=== PATIENT | female | born 1965 | race Caucasian/White ===

== ENCOUNTER 2022-02-08 15:16 | Inpatient (IN) | payer OTHER ==
--- OUTSIDE RECORDS SUMMARY | 2022-02-08 15:20 | XMS REPORT | Continuity of Care Document ---
:1965 Author Organization [facility] t Address [address] [place] [address] Care Team Providers Name Role Phone Sly BARNETT Primary Care Physician CHARITY DYSON Attending Clinician Unavailable Sly BARNETT Attending Clinician SLY Attending Clinician Unavailable Geo BARNETT Attending Clinician Darius DELGADO Attending Clinician Unavailable Darius DELGADO Admitting Clinician Unavailable Payers Payer Name Policy Type Policy Number Effective Date Expiration Date S [facility] [employer] O [id number] Problems Condition Condition Condition Status Onset Resolution Last Treating Co mments Source Name Details Category Date Date Treatment Clinician Date History of History of Disease Active 2019-09 [facility] repair of repair of 0-05 [facility] hiatal hiatal 00:00: of hernia hernia 00 Medicin e History of History of Disease Active 2019-09 [facility] repair of repair of 0-05 [facility] hiatal hiatal 00:00: of hernia hernia 00 Medicin e Essential Essential Disease Active 2019-09 [facility] hypertensi hypertensi 0-05 Co llege on on 00:00: of 00 Medicin e Heavy Heavy Disease Active 2019-09 [facility] alcohol alcohol 0-05 College use use 00:00: of 00 Medicin e 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 e drug Social History Social Habit Start Date Stop Date Quantity Comments Source Exposure to Not sure [facility] Colle e SARS-CoV-2 (event) of Med icine Cigarette 2022-02-05 2022-02-05 [facility] pack-years 00:00:00 00:00:00 of Medicine Tobacco use and 2022-02-05 2022-02-[address] [facility] exposure 00:00:00 00:00:00 non-user of Medicine Alcohol intake 2022-02-05 2022-02-05 2 /d [facility] Col lege 00:00:00 00:00:00 of Medicine Sex [birth year] At [birth year] F [facility] Co llege 00:00:00 00:00:00 of Medicine Smoking Status Start Date Stop Date Source Ex-smoker 2022-02-05 00:00:00 2022-02-05 00:00:00 [facility] ollege of Medicine Medications Ordered Filled Start Stop Current Ordering Indication Dosage Frequency Signature Comments Components Source Medication Medication Date Date Medication? Clinician (SIG) Name Name meloxicam Yes [id number] 15mg Take 1 [facility] (MOBIC) 15 5-03 Tablet by [facility] MG tablet 00:00: mouth of 00 daily. Medicin e hydrocodone Yes [id number] 1{tbl} Take 1 [facility] -acetaminop 4-25 Tablet by Col legkeira geller (NORCO) 00:00: mouth of 5-325 mg 00 every 6 Medicin tablet hours as e needed for Pain. methocarbam Yes [id number] 750mg Take 1 [facility] ol 4-25 Tablet by [place] (ROBAXIN) 00:00: mouth 3 of 750 MG 00 times Medicin tablet daily as e needed. Sodium Yes [id number] Use as [facility] or Sulfate-Mag 4-11 directed Tom [facility] Sulfate-KCl 00:00: to prepare of (SUTAB) 00 for Medicin 4539-225-18 colonoscop e 8 MG TABS y - PHARMACIST - Please see Coupon Code in Note to Pharmacy escitalopra Yes 10mg Take 1 [facility] or m (LEXAPRO) 4-11 Tablet by Col lege 10 MG 00:00: mouth of tablet 00 daily. Medicin e azelastine Yes 1{spray 1 Rowe by [facility] (ASTELIN) 4-11 } Nasal College 0.1 % nasal 00:00: route two o f spray 00 times Medicin daily. Use e in each nostril as directed triamterene Yes [id number] TAKE ONE Romeo -hydrochlor 3-03 (1) College othiazide 00:00: TABLET(S) of (MAXZIDE) 00 BY MOUTH Medici n 37.5-25 MG DAILY. e per tablet trazodone Yes [id number] TAKE ONE [facility] (DESYREL) 9-20 (1) TABLET Tom [facility] 100 MG 00:00: BY MOUTH of tablet 00 NIGHTLY Medicin NEEDED FOR e SLEEP. trazodone 2020- No 100mg Take 100 [facility] (DESYREL) 8-20 08-20 mg by College 100 MG 14:49: 00:00 mouth of tablet 41 :00 nightly. Medicin e triamterene 2020- No 25mg Take 25 mg [facility] (DYRENIUM) 8-20 08-20 by mouth [facility] 50 MG 14:49: 00:00 daily. of capsule 38 :00 Medicin e amlodipine Yes [id number] TAKE ONE [facility] (NORVASC) 8-20 (1) College 10 MG 00:00: TABLET(S) of tablet 00 BY MOUTH Medicin ONCE A e DAY. triamterene Yes [id number] 1{tbl} Take 1 [facility] -hydrochlor 8-20 Tablet by Col lege othiazide 00:00: mouth of (MAXZIDE) 00 daily. Medicin 37.5-25 MG e per tablet trazodone Yes [id number] 100mg Take 1 [facility] (DESYREL) 8-20 Tablet by [facility] ge 100 MG 00:00: mouth of tablet 00 nightly as Medicin needed for e Sleep. amlodipine Yes [id number] TAKE ONE [facility] (NORVASC) 8-20 (1) College 10 MG 00:00: TABLET(S) of tablet 00 BY MOUTH Medicin ONCE A e DAY. EPINEPHrine 2020- No [id number] .3mg Inject 0.3 [facility] (EPIPEN 8-20 08-21 mg into College 2-HARMAN) 0.3 00:00: 04:59 the muscle of MG/0.3ML 00 :00 once for 1 Medic in injection dose. e Zoster Vac 2020- No [id number] 2{dose} Inject 2 [facility]o Recomb 8-20 08-21 Doses into Colleg e Adjuvanted 00:00: 04:59 the muscle of 50 00 :00 once for 1 Medicin MCG/0.5ML dose. IM: e SUSR 0.5 mL administer ed as a 2-dose series at 0 and 2 to 6 months amlodipine 2020- No TAKE ONE [facility] (NORVASC) 6-10 08-20 (1) College 10 MG 00:00: 00:00 TABLET(S) of tablet 00 :00 BY MOUTH Medicin ONCE A e DAY. amlodipine Yes 10mg Take 10 mg [facility] (NORVASC) 2-04 by mouth Colleg e 10 MG 18:02: daily. of tablet 34 Medicin e triamterene 0 Yes 25mg Take 25 mg [facility] (DYRENIUM) 2-04 by mouth Colle ge 50 MG 18:02: daily. of capsule 34 Medicin e trazodone Yes 100mg Take 100 [place] [facility] (DESYREL) 2-04 mg by College 100 MG 18:02: mouth of tablet 34 nightly. Medicin e ketoconazol 2019-0 Yes [id number] Apply [facility] e (NIZORAL) 2-04 2x/day as Col lege 2 % cream 00:00: needed to of 00 affected Medicin areas on e face/scalp /body tretinoin 2019- Yes [id number] Start [facility] (RETIN-A) 2-04 every College 0.025 % 00:00: other of cream 00 night and Medicin increase e to nightly use as tolerated. Apply moisturize r on top to minimize side effects of dryness, redness, scaling, and irritation . Not to be used in . ketoconazol 2020- No [id number] Apply [facility] e (NIZORAL) 10-05- 2x/day as Co llege 2 % cream 00:00: 00:00 needed to of 00 :00 affected Medicin areas on e face/scalp /body tretinoin 2020- No [id number] Start [facility] (RETIN-A) 10-05 every College 0.025 % 00:00: 00:00 other of cream 00 :00 night and Medicin increase e to nightly use as tolerated. Apply moisturize r on top to minimize side effects of dryness, redness, scaling, and irritation . Not to be used in . Plecanatide 2016-09- No 3mg 3 mg 2 [facility] [facility] (TRULANCE) 10-27- times College 3 MG TABS 00:00: 00:00 daily as of 00 :00 needed. Medicin e omeprazole 2019- No [id number] 40mg Take 1 Cap [facility] (PRILOSEC) 03-07 by mouth [facility] 40 MG 00:00: 00:00 two times of capsule 00 :00 daily. Medicin e Immunizations Ordered Immunization Filled Immunization Date Status Commen ts Source Name Name Pneumococcal 2017-08-12 Completed [facility] ge Polysaccharide 00:00:00 of Medicin e Pneumococcal 2017-08-12 Completed [facility] ge Polysaccharide 00:00:00 of Medicin e Vital Signs Vital Name Observation Time Observation Value Comments Source Systolic blood 2022-02-05 13:50:00 118 mm[Hg] [facility] pressure Medicine Diastolic blood 2022-02-05 13:50:00 74 mm[Hg] [facility] pressure Medicine Heart rate 2022-02-05 13:50:00 93 /min [facility] Body temperature 2022-02-05 13:50:00 37.06 Micki [facility] Body height 2022-02-05 13:50:00 185.4 cm [facility] Body weight 2022-02-05 13:50:00 78.926 kg [facility] BMI 2022-02-05 13:50:00 22.96 kg/m2 [facility] ollege of Medicine Oxygen saturation in 2022-02-05 13:50:00 98 /min [facility] of Arterial blood by Medicine Pulse oximetry Body height 2021-04-20 19:12:00 185.4 cm [facility] C ollege of Medicine Body weight 2021-04-20 19:12:00 93.441 kg [facility] BMI 2021-04-20 19:12:00 27.18 kg/m2 [facility] ol[facility] of Medicine Oxygen saturation in 2021-04-20 19:12:00 98 /min [facility] Arterial blood by Medicine Pulse oximetry Systolic blood 2021-04-20 19:12:00 120 mm[Hg] [facility] of pressure Medicine Diastolic blood 2021-04-20 19:12:00 70 mm[Hg] [facility] of pressure Medicine Heart rate 2021-04-20 19:12:00 106 /min [facility] ollege of [facility] Body temperature 2021-04-20 19:12:00 36.39 Micki [facility] Respiratory rate 2021-04-20 19:12:00 18 /min [facility] Systolic blood 2019-10-05 18:03:00 133 mm[Hg] [facility] of pressure Medicine Diastolic blood 2019-10-05 18:03:00 95 mm[Hg] [facility] of pressure Medicine Heart rate 2019-10-05 18:03:00 88 /min [facility] of [facility] Body height 2019-10-05 18:03:00 185.4 cm [facility] Body weight 2019-10-05 18:03:00 108.863 kg [facility] BMI 2019-10-05 18:03:00 31.66 kg/m2 [facility] of [facility] Systolic blood 2019-10-05 18:03:00 133 mm[Hg] [facility] of pressure Medicine Diastolic blood 2019-10-05 18:03:00 95 mm[Hg] [facility] of pressure Medicine Heart rate 2019-10-05 18:03:00 88 /min [facility] ol[facility] of Medicine Body height 2019-10-05 18:03:00 185.4 cm [facility] C ollege of Medicine Body weight 2019-10-05 18:03:00 108.863 kg [facility] BMI 2019-10-05 18:03:00 31.66 kg/m2 [facility] Procedures Procedure Date / Time Performed Performing Clinician [facility] keira HEMOGLOBIN A1C 2020-06-05 09:31:18 [facility] TSH REFLEX TO FREE T4 2020-06-05 09:30:46 [facility] BASIC METABOLIC PANEL 2020-06-05 08:59:53 [facility] CBC W/AUTO DIFF WITH 2020-06-05 08:59:53 [facility] HEPATIC FUNCTION PANEL 2020-06-05 08:59:53 [facility] LIPID PANEL 2020-06-05 08:59:53 [facility] (SCN) SCANNED ORDER 2020-06-05 08:45:21 [facility] Plan of Care Planned Activity Planned Date Details Comments Source Future Scheduled 2022-02-05 Screening for malignant [facility] Test 12:14:06 neoplasm of breast of Medici ne (procedure) [code = 635882213] Future Scheduled 2022-02-05 COVID-19 Vaccine (#1) Ba or College Test 12:14:06 [code = COVID-19 of Medicine Vaccine (#1)] Future Scheduled 2022-02-05 TETANUS SHOT (ADULT) [facility] Test 12:14:06 [code = TETANUS SHOT of Medi cine (ADULT)] Future Scheduled 2022-02-05 Screening for malignant [facility] Test 12:14:06 neoplasm of cervix of Medici ne (procedure) [code = 738478737] Future Scheduled 2022-02-05 ZOSTER VACCINE (1 of 2) [facility] Test 12:14:06 [code = ZOSTER VACCINE of Me dicine (1 of 2)] Future Scheduled 2022-02-05 Screening for malignant [facility] Test 12:14:06 neoplasm of colon of Medicin e (procedure) [code = 311567849] Future Scheduled 2022-02-05 FLU VACCINE > 6 MONTHS [facility] Test 12:14:06 [code = FLU VACCINE > 6 of M edicine MONTHS] Future Scheduled 2022-02-05 CBC W/AUTO DIFF WITH Ordered: [facility] College Test 09:19:51 PLATELETS [code = 02/05/2022 of Medicin e 49144-8] Future Scheduled 2022-02-05 BASIC METABOLIC PANEL Ordered: [facility] Test 09:19:51 [code = 51171-4] 02/05/2022 of Medicine Future Scheduled 2022-02-05 HEPATIC FUNCTION PANEL Ordered: [facility] Test 09:19:51 [code = 87698-8] 02/05/2022 of Medicine Future Scheduled 2022-02-05 HEMOGLOBIN A1C [code = Ordered: B [facility] Test 09:19:51 4548-4] 02/05/2022 of Medicine Future Scheduled 2022-02-05 DEXA BONE DENSITY SPINE 1 Occurrences [facility] Test 09:19:51 AND HIP [code = 02501] starting of Me dicine 02/05/2022 until 02/05/2023 Future Scheduled 2022-02-05 MRI BRAIN W WO CONTRAST 1 Occurrences [facility] Test 09:19:51 [code = 77383-8] starting of Medicine 02/05/2022 until 02/05/2023 Diagnostic Test 2022-02-05 ECHO, COMPLETE [code = Expected: [facility] Pending 00:00:00 78050] 02/05/2022, of Medicine Expires: 08/07/2022 Future Scheduled 2021-04-20 Screening for malignant [facility] Test 15:18:39 neoplasm of breast of Medici ne (procedure) [code = 001635609] Future Scheduled 2021-04-20 COVID-19 Vaccine (1) [facility] Test 15:18:39 [code = COVID-19 of Medicine Vaccine (1)] Future Scheduled 2021-04-20 TETANUS SHOT (ADULT) [facility] Test 15:18:39 [code = TETANUS SHOT of Medi cine (ADULT)] Future Scheduled 2021-04-20 BMI FOLLOW UP PLAN [facility] Test 15:18:39 [code = BMI FOLLOW UP of Med icine PLAN] Future Scheduled 2021-04-20 Hepatitis C screening [facility] Test 15:18:39 (procedure) [code = of Medic ine 918420078] Future Scheduled 2021-04-20 Human immunodeficiency B [facility] Test 15:18:39 virus screening of Medicine (procedure) [code = 208954053] Future Scheduled 2021-04-20 Screening for malignant [facility] Test 15:18:39 neoplasm of cervix of Medici ne (procedure) [code = 450077910] Future Scheduled 2021-04-20 ZOSTER VACCINE (1 of 2) [facility] Test 15:18:39 [code = ZOSTER VACCINE of Me dicine (1 of 2)] Future Scheduled 2021-04-20 Screening for malignant [facility] Test 15:18:39 neoplasm of colon of Medicin e (procedure) [code = 672219683] Future Scheduled 2021-04-20 FLU VACCINE > 6 MONTHS B [facility] College Test 15:18:39 [code = FLU VACCINE > 6 of M edicine MONTHS] Future Scheduled 2021-04-20 HIV AB/AG 4TH GEN W Ordered: [facility] or [facility] Test 15:06:30 RFLX [code = 04082-8] 04/20/2021 of Med icine Future Scheduled 2021-04-20 HEPATITIS C ANTIBODY Ordered: [facility] Test 15:06:30 [code = 56970-2] 04/20/2021 of Medicine Future Scheduled 2021-04-20 CBC W/AUTO DIFF WITH Ordered: [facility] Test 14:55:20 PLATELETS [code = 04/20/2021 of Medicin e 16554-9] Future Scheduled 2021-04-20 BASIC METABOLIC PANEL Ordered: [facility] Test 14:55:20 [code = 77623-0] 04/20/2021 of Medicine Future Scheduled 2021-04-20 LIPID PANEL [code = Ordered: [facility] or [facility] Test 14:55:20 17105-0] 04/20/2021 of Medicine Future Scheduled 2021-04-20 HEPATIC FUNCTION PANEL Ordered: [facility] Test 14:55:20 [code = 88163-6] 04/20/2021 of Medicine Future Scheduled 2021-04-20 HEMOGLOBIN A1C [code = Ordered: B [facility] Test 14:55:20 4548-4] 04/20/2021 of Medicine Future Scheduled 2021-04-20 TSH REFLEX TO FREE T4 Ordered: [facility] Test 14:55:20 [code = 3016-3] 04/20/2021 of Medicine Diagnostic Test 2021-04-20 MAMMO 3D SCREENING Expected: [facility] Pending 00:00:00 BILATERAL [code = 04/20/2021, of Medicin e 32476] Expires: 10/21/2022 Future Scheduled [facility]AM[facility]AL [facility] of Medic ine Future Scheduled TETANUS SHOT (ADULT) [facility] [employer] Test [code = TETANUS SHOT of Medi cine (ADULT)] Future Scheduled BMI FOLLOW UP PLAN [facility] r College Test [code = BMI FOLLOW UP of Med icine PLAN] Future Scheduled HIV SCREENING [code = Ba [facility] Test HIV SCREENING] of Medicine Future Scheduled CERVICAL CANCER [facility] C ollege Test SCREENING 3 YEAR FOLLOW of M edicine UP [code = CERVICAL CANCER SCREENING 3 YEAR FOLLOW UP] Future Scheduled COLON CANCER SCREENING: [facility] Test COLONOSCOPY [code = of Medic ine COLON CANCER SCREENING: COLONOSCOPY] Future Scheduled FLU VACCINE > 6 MONTHS B [facility] College Test [code = FLU VACCINE > 6 of M edicine MONTHS] Encounters Start End Encounter Admission Attending Care Care Encounter Source Date/Time Date/Time Type Type Clinicians Facility Department ID 2022-02-07 2022-02-08 Outpatient ALVIN DYSON Pari [facility] [id number] [place] [address] 15:29:06 07:51:47 Colleg e of Medicin e 2022-02-05 2022-02-05 Outpatient [facility] [id number] [address] [place] [address] 10:28:06 10:28:06 Colleg e of Medicin e 2022-02-05 2022-02-05 Outpatient Pari HUDDLESTON [id number] [facility] 10:27:44 10:27:44 Colleg e of Medicin e 2022-02-05 2022-02-05 Office [facility] [id number] [place] [address] 08:35:00 09:43:07 Visit Lori AMBULATOR 350.1.13.21 College Y 0.2.7.2.686 [id number] Medi blanca 300 e 2022-01-01 2022-01-01 Outpatient [facility] [id number] [facility] 07:34:20 07:56:02 LORI Colleg e of Medicin e 2021-12-24 2021-12-24 Outpatient [facility] [id number] [facility] 14:13:31 14:53:11 LORI Colleg e of Medicin e 2021-12-10 2021-12-10 Outpatient EDIE HEART [facility] [id number] [facility] 10:27:15 11:24:19 LORI Colleg e of Medicin e 2021-04-20 2021-04-20 Office EDIE Heart [id number] [facility] 13:59:36 15:56:01 Visit Lori AMBULATOR 350.1.13.21 College Y 0.2.7.2.686 of [id number] Medi blanca 300 e 2020-06-05 2020-06-05 Outpatient EDIE HEART [facility] [id number] [facility] 08:45:21 09:07:48 LORI Colleg e of Medicin e 2019-10-05 2019-10-05 Office Heather Guardado [id number] [facility] 11:51:07 12:06:07 Visit AMBULATOR 350.1.13.21 College Y 0.2.7.2.686 of [id number] Medi blanca 300 e 2019-10-05 2019-10-05 Office Heather Guardado [id number] 11:51:07 12:06:07 Visit AMBULATOR 350.1.13.21 Y 0.2.7.2.686 [id number] 300 Results Test Description Test Time Test Comments Results Result Sour e Comments TISSUE EXAM 2017-08-12 Surgical Pathology 15:58:00 Report Case: [id number] Authorizing Provider: Alfonso Delgado MD Collected: 08/11/2017 1404 Ordering Location: [facility] Received: 08/11/2017 1514 SERVICES Pathologist: Trip Sanches MD Specimen: Soft Tissue, Other, hernia sac A. SOFT TISSUE, REPAIR OF HIATAL HERNIA: - FIBROADIPOSE TISSUE, CONSISTENT WITH HERNIA SAC - SIX BENIGN LYMPH NODES (0/6) Signing Pathologist Direct Phone Line: [phone] ally signed by Trip Sanches MD on 08/12/2017 at 3:58 [id number] hernia Hernia sac Specimen is received in a fluidless container labeled with the patient's information and labeled "hernia sac" consistent with a segment of fibromembranous tissue and associated sac measuring 3 x 2 x 0.5 cm. Specimen has grossly what appears to be multiple luna-pink lymph nodes.Section code: A1, four lymph nodes measuring up to 0.5 cm; A2, hernia sac. CG/bc Performed. BASIC METABOLIC PANEL 2017-08-11 11:19:00 Test Item Value Reference Range Interpretation Comme nts SODIUM (BEAKER) (test code 136 meq/L 136-145 = 381) POTASSIUM (BEAKER) (test 3.4 meq/L 3.5-5.1 L Spe cimen slightly code = 379) hemolyzed CHLORIDE (BEAKER) (test 97 meq/L 98-107 L code = 382) CO2 (BEAKER) (test code = 24 meq/L 22-29 355) BLOOD UREA NITROGEN 11 mg/dL 7-21 (BEAKER) (test code = 354) CREATININE (BEAKER) (test 0.89 mg/dL 0.57-1.25 Sp ecimen slightly code = 358) hemolyzed GLUCOSE RANDOM (BEAKER) 131 mg/dL 70-105 H (test code = 652) CALCIUM (BEAKER) (test code 9.6 mg/dL 8.4-10.2 = 697) EGFR (BEAKER) (test code = 67 mL/min/1.73 sq m ESTIMATED GFR IS NOT 1092) ACCURATE CRE ATININE CLEARANCE IN NC EDICTING GLOMERULAR FILT RATION RATE. ESTIMATED GFR IS NOT APPLICABLE FOR DIALYSIS PATIENTS. CBC W/PLT COUNT & AUTO [id number] 10:10:00 Test Item Value Reference Range Interpretation Comments WHITE BLOOD CELL COUNT (BEAKER) 10.0 K/ L 3.5-10.5 (test code = 775) RED BLOOD CELL COUNT (BEAKER) 4.93 M/ L 3.93-5.22 (test code = 761) HEMOGLOBIN (BEAKER) (test code = 16.0 GM/DL 11.2-15.7 H 410) HEMATOCRIT (BEAKER) (test code = 45.7 % 34.1-44.9 H 411) MEAN CORPUSCULAR VOLUME (BEAKER) 92.7 fL 79.4-94.8 (test code = 753) MEAN CORPUSCULAR HEMOGLOBIN 32.5 pg 25.6-32.2 H (BEAKER) (test code = 751) MEAN CORPUSCULAR HEMOGLOBIN CONC 35.0 GM/DL 32.2-35.5 (BEAKER) (test code = 752) RED CELL DISTRIBUTION WIDTH 11.9 % 11.7-14.4 (BEAKER) (test code = 412) PLATELET COUNT (BEAKER) (test 247 K/CU MM 150-450 code = 756) MEAN PLATELET VOLUME (BEAKER) 8.8 fL 9.4-12.3 L (test code = 754) NUCLEATED RED BLOOD CELLS 0 /100 WBC 0-0 (BEAKER) (test code = 413) NEUTROPHILS RELATIVE PERCENT 70 % (BEAKER) (test code = 429) LYMPHOCYTES RELATIVE PERCENT 21 % (BEAKER) (test code = 430) MONOCYTES RELATIVE PERCENT 7 % (BEAKER) (test code = 431) EOSINOPHILS RELATIVE PERCENT 0 % (BEAKER) (test code = 432) BASOPHILS RELATIVE PERCENT 1 % (BEAKER) (test code = 437) NEUTROPHILS ABSOLUTE COUNT 7.06 K/ L 1.56-6.13 H (BEAKER) (test code = 670) LYMPHOCYTES ABSOLUTE COUNT 2.10 K/ L 1.18-3.74 (BEAKER) (test code = 414) MONOCYTES ABSOLUTE COUNT (BEAKER) 0.73 K/ L 0.24-0.36 H (test code = 415) EOSINOPHILS ABSOLUTE COUNT 0.04 K/ L 0.04-0.36 (BEAKER) (test code = 416) BASOPHILS ABSOLUTE COUNT (BEAKER) 0.07 K/ L 0.01-0.08 (test code = 417) IMMATURE GRANULOCYTES-RELATIVE 0 % 0-1 PERCENT (BEAKER) (test code = 2801) [id number] 13:26:00 Test Item Value Reference Range Interpretation Comments SODIUM (BEAKER) (test code = 381) 136 meq/L 136-145 POTASSIUM (BEAKER) (test code = 4.0 meq/L 3.5-5.1 379) CHLORIDE (BEAKER) (test code = 382) 100 meq/L 98-107 CO2 (BEAKER) (test code = 355) 28 meq/L 22-29 BUN AND [id number] 13:26:00 Test Item Value Reference Range Interpretation Comments BLOOD UREA NITROGEN 11 mg/dL 7-21 (BEAKER) (test code = 354) CREATININE (BEAKER) 0.90 mg/dL 0.57-1.25 (test code = 358) EGFR (BEAKER) (test 66 mL/min/1.73 ESTIMA MULU GFR IS code = 1092) sq m NOT ACCURATE CREATININE CLEARANCE IN PREDICTING GLOMERULAR FILTRATION RATE . ESTIMATED GFR I S NOT APPLICABLE FOR DIALYSIS PATIEN TS. [id number] 13:22:00 Test Item Value Reference Range Interpretation Comments HEMOGLOBIN (BEAKER) (test code = 15.9 GM/DL 11.2-15.7 H 410) PLATELET [id number] 13:22:00 Test Item Value Reference Range Interpretation Comments PLATELET COUNT (BEAKER) (test 228 K/CU MM 150-450 code = 756)
[2022-02-08] MEDS ORDERED: THIAMINE 200 MG/2 ML INJ ONE (16:29)
[2022-02-08] MEDS ORDERED: NA CHLORIDE 0.9% 1,000 ML ONE ×2 (16:30→16:33)
[2022-02-08] MEDS ORDERED: MULTIVITAMINS 10 ML VIAL (INJ) IV ONE (16:30)
[2022-02-08] MEDS ORDERED: FOLIC ACID 5 MG/ML VIAL ONE (16:30)
--- NOTE | 2022-02-08 16:39 | RAD REPORT ---
EXAM DESCRIPTION: RAD - Chest Single View - 02/08/2022 4:22 pm CLINICAL HISTORY: COUGH, history of multiple falls, history of multiple rib fractures COMPARISON: Chest and rib films 12/25/2021 TECHNIQUE: AP portable chest image was obtained 02/08/2022 4:22 pm . FINDINGS: No acute lung parenchymal process. Interstitial pattern matches comparison. Heart and vasc ulature are normal. No measurable pleural effusion and no pneumothorax. No acute bony abnormality seen. Posterior right fourth- seventh rib fractures are noted. Positioning is similar to the prior examination. No pathologic component. No acute aortic findings suspected. IMPRESSION: No acute cardiopulmonary process. Old posterior upper right rib fractures noted.
--- NOTE | 2022-02-08 16:45 | RAD REPORT ---
EXAM DESCRIPTION: CT - CTHCSPWOC - 02/08/2022 4:31 pm CLINICAL HISTORY: fall COMPARISON: No comparisons TECHNIQUE: Axial 5 mm thick images of the head were obtained. Axial 2 mm thick images of the cervic al spine were obtained with sagittal and coronal reconstruction images generated and reviewed. All CT scans are performed using dose optimization technique as appropriate and may include automated exposure control or mA/KV adjustment according to patient size. FINDINGS: No intracranial hemorrhage, mass, edema or acute intracranial finding. No suspicion for ac logan infarction. No extra-axial fluid collections. Mastoid air cells and paranasal sinuses are clear. No globe or orbit abnormality seen. Cervical body height and alignment are normal. C5-7 fusion changes are present. Anterior plate and sc rew fixation is present. Degenerative changes are present to the C5-6 and C6-7 endplates with graft m aterial in the disc spaces. There is straightening of the usual cervical lordosis. Very slight anteri or subluxation of C3 on C4 noted. Prominent left-sided facet joint degenerative changes are present a t C2-3, C3-4. There is bony foraminal encroachment at both of these levels. No other significant fora leena encroachment changes. No fracture or acute bony abnormality. No pathologic bone process. No gross evidence for an acute central canal abnormality. Central canal detail is inherently limited. No paraspinal mass or hematoma. IMPRESSION: Negative CT head examination for acute or significant finding. Negative CT cervical spine examination for acute or significant finding. Nonacute findings detailed i n the body of the report.
[2022-02-08 16:56] LABS: Absolute Lymphocytes (CBC) 1.7 K/uL (0.7-4.9); Hematocrit 48.3 % (36.0-45.0); Lymphocytes % 16.7 % (15.3-44.8); RBC Red Blood Cell Count 4.84 M/uL (3.86-4.86)
[2022-02-08 17:19] LABS: Urine Blood Negative (Negative); Urine Glucose Negative (Negative); Urine Protein Negative (Negative)
[2022-02-08 17:20] LABS: Protime INR 1.13
[2022-02-08 17:52] LABS: Albumin 3.6 g/dL (3.4-5.0); Bilirubin Direct 0.8 mg/dL (0-0.2); Bilirubin Total 1.6 mg/dL (0.2-1.0); Magnesium 2.5 mg/dL (1.8-2.4); Protein, Total 8.2 g/dL (6.4-8.2); Troponin High Sensitivity 4.3 pg/mL (<58.9)
[2022-02-08 17:54] LABS: Potassium 2.6 mmol/L (3.5-5.1)
--- NOTE | 2022-02-08 18:03 | EDPHYS ---
Physician Documentation [facility] Name: Dyana Lockwood Age: 56 yrs Sex: Female : 1965 Arrival Date: 02/08/2022 Time: 15:18 Bed 17 Private MD: ED Physician Jordon Alan HPI: 02/08 17:18 This 56 yrs old Female presents to ER via Ambulatory with complaints of mel General Weakness, Fatigue. 17:18 fall, etoh , not heavy, loosing weight. Details of fall: The patient fell from an [facility] upright position, while walking. Onset: The symptoms/episode began/occurred 3 day(s) ago. Associated injuries: The patient sustained injury to the head, anterior aspect of right shoulder and posterior aspect of right shoulder. Severity of symptoms: At their worst the symptoms were mild, in the emergency department the symptoms are unchanged. Severity of symptoms: At their worst the symptoms were mild in the emergency department the symptoms are unchanged. The patient has experienced similar episodes in the past, several times. 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 - Social history:: Smoking status: Patient uses alcohol, "2 glasses of wine a day from a bottle a day, im pretty much an alcoholic". - Family history:: not pertinent. ROS: 17:18 Constitutional: Negative for fever, chills, and weight loss, Eyes: Negative for injury, mel pain, redness, and discharge, ENT: Negative for injury, pain, and discharge, Neck: Negative for injury, pain, and swelling, Cardiovascular: Negative for chest pain, palpitations, and edema, Respiratory: Negative for shortness of breath, cough, wheezing, and pleuritic chest pain, Abdomen/GI: Negative for abdominal pain, nausea, vomiting, diarrhea, and constipation, Back: Negative for injury and pain, : Negative for injury, bleeding, discharge, and swelling, Skin: Negative for injury, rash, and discoloration, Psych: Negative for depression, anxiety, suicide ideation, homicidal ideation, and hallucinations, Allergy/Immunology: Negative for hives, rash, and allergies, Endocrine: Negative for neck swelling, polydipsia, polyuria, polyphagia, and marked weight changes, Hematologic/Lymphatic: Negative for swollen nodes, abnormal bleeding, and unusual bruising. 17:18 MS/extremity: Positive for pain, of the anterior aspect of right shoulder and posterior aspect of right shoulder. Exam: 17:18 Constitutional: This is a well developed, well nourished patient who is awake, alert, mel and in no acute distress. Head/Face: Normocephalic, atraumatic. Eyes: Pupils equal round and reactive to light, extra-ocular motions intact. Lids and lashes normal. Conjunctiva and sclera are non-icteric and not injected. Cornea within normal limits. Periorbital areas with no swelling, redness, or edema. ENT: Nares patent. No nasal discharge, no septal abnormalities noted. Tympanic membranes are normal and external auditory canals are clear. Oropharynx with no redness, swelling, or masses, exudates, or evidence of obstruction, uvula midline. Mucous membranes moist. Neck: Trachea midline, no thyromegaly or masses palpated, and no cervical lymphadenopathy. Supple, full range of motion without nuchal rigidity, or vertebral point tenderness. No Meningismus. Chest/axilla: Normal chest wall appearance and motion. Nontender with no deformity. No lesions are appreciated. Cardiovascular: Regular rate and rhythm with a normal S1 and S2. No gallops, murmurs, or rubs. Normal PMI, no JVD. No pulse deficits. Respiratory: Lungs have equal breath sounds bilaterally, clear to auscultation and percussion. No rales, rhonchi or wheezes noted. No increased work of breathing, no retractions or nasal flaring. Abdomen/GI: Soft, non-tender, with normal bowel sounds. No distension or tympany. No guarding or rebound. No evidence of tenderness throughout. Back: No spinal tenderness. No costovertebral tenderness. Full range of motion. Skin: Warm, dry with normal turgor. Normal color with no rashes, no lesions, and no evidence of cellulitis. MS/ Extremity: Pulses equal, no cyanosis. Neurovascular intact. Full, normal range of motion. Neuro: Awake and alert, GCS 15, oriented to person, place, time, and situation. Cranial nerves II-XII grossly intact. Motor strength 5/5 in all extremities. Sensory grossly intact. Cerebellar exam normal. Normal gait. Psych: Awake, alert, with orientation to person, place and time. Behavior, mood, and affect are within normal limits. 17:18 ECG was reviewed by the Attending Physician. Vital Signs: 15:29 BP 111 / 72; Pulse 105; Resp 17; Temp 97.8(TE); Pulse Ox 97% on R/A; Weight 78.93 kg; tw2 Height 6 ft. 1 in. (185.42 cm); Pain 0/10; 18:39 BP 104 / 72; Pulse 89; Resp 16; Pulse Ox 98% on R/A; iw 19:19 BP 109 / 82; Pulse 88; Resp 23 S; Temp 98.7(O); Pulse Ox 99% on R/A; Pain 0/10; ag7 23:30 BP 109 / 76; Pulse 90; Resp 20 S; Pulse Ox 100% on R/A; Pain 0/10; ag7 15:29 Body Mass Index 22.96 (78.93 kg, 185.42 cm) tw2 MDM: 15:22 Patient medically screened. mel 17:24 Differential diagnosis: closed head injury, contusion, fracture, sprain, strain. Data mel reviewed: vital signs, nurses notes, lab test result(s), EKG, radiologic studies, CT scan, plain films. Data interpreted: quality assurance monitor body: rate is 105 beats/min, rhythm is regular. Test interpretation: by ED physician or midlevel provider: ECG, plain radiologic studies. Counseling: I had a detailed discussion with the patient and/or guardian regarding: the historical points, exam findings, and any diagnostic results supporting the discharge/admit diagnosis, lab results, radiology results, the need for outpatient follow up, for definitive care, a family practitioner. 02/08 16:03 Order name: Basic Metabolic Panel; Complete Time: 17:56 [facility] 02/08 16:03 Order name: CBC with Diff; Complete Time: 17:33 [facility] 02/08 16:03 Order name: LFT's; Complete Time: 17:56 [facility] 02/08 16:03 Order name: Magnesium; Complete Time: 17:56 [facility] 02/08 16:03 Order name: NT PRO-BNP; Complete Time: 17:56 [facility] 02/08 16:03 Order name: PT-INR; Complete Time: 17:33 [facility] 02/08 16:03 Order name: Troponin HS; Complete Time: 17:56 [facility] 02/08 16:03 Order name: Lipase; Complete Time: 17:56 [facility] 02/08 16:05 Order name: Alcohol Level; Complete Time: 17:42 [facility] 02/08 17:20 Order name: Urine Dipstick-Ancillary; Complete Time: 17:33 EDMS 02/08 17:57 Order name: Phosphorus 02/08 18:03 Order name: Osmolality, Serum 02/08 18:03 Order name: Urine Osmolality 02/08 18:03 Order name: Urine Sodium Random 02/08 16:03 Order name: XRAY Chest (1 view); Complete Time: 17:09 [facility] 02/08 16:03 Order name: EKG; Complete Time: 16:04 [facility] 02/08 16:03 Order name: Cardiac monitoring; Complete Time: 17:03 [facility] 02/08 16:03 Order name: EKG - Nurse/Tech; Complete Time: 17:03 [facility] 02/08 16:03 Order name: IV Saline Lock; Complete Time: 16:45 [facility] 02/08 16:03 Order name: Labs collected and sent; Complete Time: 16:45 [facility] 02/08 16:03 Order name: O2 Per Protocol; Complete Time: 17:03 [facility] 02/08 16:03 Order name: O2 Sat Monitoring; Complete Time: 17:03 [facility] 02/08 16:03 Order name: CT Head C Spine; Complete Time: 17:09 [facility] 02/08 16:03 Order name: Urine Dipstick-Ancillary (obtain specimen); Complete Time: 17:04 [facility] 02/08 18:16 Order name: SARS-COV-2 RT PCR (Document "Date of Onset" if Symptomatic) iw EC:18 Rate is 87 beats/min. Rhythm is regular. QRS [place] is Normal. MS interval is normal. QRS mel interval is normal. QT interval is normal. No Q waves. T waves are Normal. No ST changes noted. Clinical impression: NSR w/ Non-specific ST/T Changes and No evidence of ischemia. Interpreted by me. Reviewed by me. Administered Medications: 17:08 Drug: NS 0.9% 1000 ml Route: IV; Rate: 1 bolus; Site: right antecubital; iw 18:15 Follow up: IV Status: Completed infusion iw 17:08 Drug: Thiamine 100 mg Route: IV; Rate: bolus; Site: right antecubital; iw 17:10 Follow up: IV Status: Completed infusion iw 17:08 Drug: Banana Bag - (NS 0.9% 1000 ml, foLIC Acid 1 mg, Thiamine 100 mg, Multivitamin 1 iw amp) Route: IV; Rate: 150 per protocol; Site: right antecubital; 19:00 Follow up: IV Status: Infusion continued upon admission iw 18:38 Drug: Potassium Effervescent Tablet 50 mEq Route: PO; iw 19:00 Follow up: Response: No adverse reaction iw 19:02 Drug: Potassium Chloride 20 mEq Route: IV; Rate: per protocol; Site: right antecubital; iw 23:46 Follow up: IV Status: Completed infusion; IV Intake: 100ml ag7 Disposition Summary: 02/08/22 18:01 Hospitalization Ordered Hospitalization Status: Observation mel Location: Telemetry/MedSurg (observation) mel Condition: Fair mel Problem: new mel Symptoms: have improved mel Bed/Room Type: Standard mel Provider: Phani Faye(02/08/22 18:12) la1 Room Assignment: [facility](02/08/22 21:28) cg Diagnosis - Weakness mel - Hypo-osmolality and hyponatremia mel - Hypokalemia mel - Alcohol abuse mel - Alcohol dependence mel - Repeated falls mel Discharge Instructions: - Discharge Summary Sheet mel - Alcohol Use Disorder mel - Weakness mel - Fatigue mel - Alcohol Abuse and Nutrition mel - Weakness, [place] mel - Deconditioning mel - Alcohol Abuse and Dependence Information, Adult mel Forms: - Medication Reconciliation Form mel - SBAR form mel Signatures: Dispatcher [employer] Jordon Rodrigez MD MD cha Williams, Irene RN RN iw Salbador Natarajan FNP-C FNP-Cla1 Faby Smith RN RN Susan Parmar RN RN tw2 Vidhi Vallejo RN ag7 Corrections: (The following items were deleted from the chart) 18:12 18:01 Bolivar Joseph cha la1 21:28 18:01 mel cg
--- NOTE | 2022-02-08 18:03 | ER ---
Nurse's Notes [facility] Name: Dyana Lockwood Age: 56 yrs Sex: Female : 1965 Arrival Date: 02/08/2022 Time: 15:18 Bed 17 Private MD: Diagnosis: Weakness;Hypo-osmolality and hyponatremia;Hypokalemia;Alcohol abuse;Alcohol dependence;Repeated falls Presentation: 02/08 15:29 Chief complaint: Patient states: i went to my dr Friday because i fell. i have fallen tw2 several times over the passed 2 months. that's why i am here because i am sober, . 2 months ago i passed out and broke 8 ribs just reaching for a paper towel but i remember everything. my legs feel super wobbly like i cant control my muscles. i get dizzy almost every time i stand up but the falling is just random. Chief complaint:. Coronavirus screen: At this time, the client does not indicate any symptoms associated with coronavirus-19. Ebola Screen: Patient denies travel to an Ebola-affected area in the 21 days before illness onset. Initial Sepsis Screen: Does the patient meet any 2 criteria? No. Patient's initial sepsis screen is negative. Does the patient have a suspected source of infection? No. Patient's initial sepsis screen is negative. Risk Assessment: Do you want to hurt yourself or someone else? Patient reports no desire to harm self or others. Onset of symptoms was February 08, 2022. 15:29 Method Of Arrival: Ambulatory tw2 15:29 Acuity: KELBY 3 tw2 15:[address] Curiel - pcp [facility]. tw2 Triage Assessment: 15:32 General: Appears in no apparent distress. well groomed, Behavior is calm, cooperative, tw2 appropriate for age. Pain: Denies pain. Neuro: Level of Consciousness is awake, alert, obeys commands, Oriented to person, place, time, situation. 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 - Social history:: Smoking status: Patient uses alcohol, "2 glasses of wine a day from a bottle a day, im pretty much an alcoholic". - Family history:: not pertinent. Screenin:07 Abuse screen: Denies threats or abuse. Nutritional screening: No deficits noted. tw2 Tuberculosis screening: Fall Risk Fall in past 12 months (25 points). Assessment: 17:30 General: Appears in no apparent distress. Behavior is calm, cooperative. Pain: Denies iw pain. Neuro: Mccullough Agitation-Sedation Scale (RASS): Level of Consciousness is awake, alert, obeys commands, Oriented to person, place, time, situation, Moves all extremities. Cardiovascular: Patient's skin is warm and dry. Respiratory: Respiratory effort is even, unlabored, Respiratory pattern is regular, symmetrical. Derm: Skin is intact, is healthy with good turgor. Musculoskeletal: Range of motion: intact in all extremities. 18:39 Reassessment: Patient appears in no apparent distress at this time. Patient and/or iw family updated on plan of care and expected duration. Pain level reassessed. Patient is alert, oriented x 3, equal unlabored respirations, skin warm/dry/pink. 19:15 Reassessment: Patient and/or family updated on plan of care and expected duration. Pain ag7 level reassessed. Patient is alert, oriented x 3, equal unlabored respirations, skin warm/dry/pink. Patient denies pain at this time. Patient states feeling better. Patient states symptoms have improved. 20:00 Reassessment: No changes from previously documented assessment. ag7 21:00 Reassessment: Patient and/or family updated on plan of care and expected duration. Pain ag7 level reassessed. Patient is alert, oriented x 3, equal unlabored respirations, skin warm/dry/pink. Patient denies pain at this time. Patient states feeling better. Patient states symptoms have improved. 22:00 Reassessment: Patient and/or family updated on plan of care and expected duration. Pain ag7 level reassessed. Patient is alert, oriented x 3, equal unlabored respirations, skin warm/dry/pink. Patient denies pain at this time. 23:12 Reassessment: No changes from previously documented assessment. Patient and/or family ag7 updated on plan of care and expected duration. Pain level reassessed. Patient is alert, oriented x 3, equal unlabored respirations, skin warm/dry/pink. Vital Signs: 15:29 BP 111 / 72; Pulse 105; Resp 17; Temp 97.8(TE); Pulse Ox 97% on R/A; Weight 78.93 kg; tw2 Height 6 ft. 1 in. (185.42 cm); Pain 0/10; 18:39 BP 104 / 72; Pulse 89; Resp 16; Pulse Ox 98% on R/A; iw 19:19 BP 109 / 82; Pulse 88; Resp 23 S; Temp 98.7(O); Pulse Ox 99% on R/A; Pain 0/10; ag7 23:30 BP 109 / 76; Pulse 90; Resp 20 S; Pulse Ox 100% on R/A; Pain 0/10; ag7 15:29 Body Mass Index 22.96 (78.93 kg, 185.42 cm) tw2 ED Course: 15:18 Patient arrived in ED. jj6 15:22 Jordon Alan MD is Attending Physician. mel 15:32 Triage completed. tw2 15:32 Arm band placed on. tw2 16:08 Bed in low position. Call light in reach. Side rails up X 1. night monitor on. Pulse tw2 ox on. NIBP on. 16:24 XRAY Chest (1 view) In Process Unspecified. EDMS 16:33 CT Head C Spine In Process Unspecified. EDMS 16:36 Cuca Vega, RN is Primary Nurse. iw 16:42 Initial lab(s) drawn, by ma, sent to lab. Inserted saline lock: 20 gauge in right dh3 antecubital area, using aseptic technique. Blood collected. 17:03 EKG done, by ED staff, reviewed by Jordon Alan MD. 3 17:58 Bolivar Joseph MD is Hospitalizing Provider. mel 18:12 Phani Faye MD is Hospitalizing Provider. la1 21:31 Inserted saline lock: 22 gauge in right hand, using aseptic technique. ke1 23:14 No provider procedures requiring assistance completed. Patient admitted, IV remains in ag7 place. Administered Medications: 17:08 Drug: NS 0.9% 1000 ml Route: IV; Rate: 1 bolus; Site: right antecubital; iw 18:15 Follow up: IV Status: Completed infusion iw 17:08 Drug: Thiamine 100 mg Route: IV; Rate: bolus; Site: right antecubital; iw 17:10 Follow up: IV Status: Completed infusion iw 17:08 Drug: Banana Bag - (NS 0.9% 1000 ml, foLIC Acid 1 mg, Thiamine 100 mg, Multivitamin 1 iw amp) Route: IV; Rate: 150 per protocol; Site: right antecubital; 19:00 Follow up: IV Status: Infusion continued upon admission iw 18:38 Drug: Potassium Effervescent Tablet 50 mEq Route: PO; iw 19:00 Follow up: Response: No adverse reaction iw 19:02 Drug: Potassium Chloride 20 mEq Route: IV; Rate: per protocol; Site: right antecubital; iw 23:46 Follow up: IV Status: Completed infusion; IV Intake: 100ml ag7 Medication: 16:07 VIS not applicable for this client. tw2 Intake: 23:46 IV: 100ml; Total: 100ml. ag7 Outcome: 18:01 Decision to Hospitalize by Provider. mel 23:14 Admitted to Med/surg via wheelchair, room 431, with chart, Report called to Lindy PEREZ ag7 23:14 Condition: stable 23:49 Patient left the ED. ag7 Signatures: Dispatcher [employer] EDJordon Howard MD MD cha Williams, Irene, RN RN iw Salbador Natarajan, ALUMINUM BOAT INSPECTOR-C ALUMINUM BOAT INSPECTOR-Shasha1 Susan Parmar RN RN [facility] Leonila aJck [facility] Nieves Brady6 Rasta Quiroz RN RN ke1 Vidhi Vallejo RN RN ag7 Corrections: (The following items were deleted from the chart) 23:14 19:00 BP 125 / 97; Pulse 77bpm; Resp 23bpm; Spontaneous; Pulse Ox 94% RA; Temp 98.7F ag7 Oral; Pain 0/10; ag7 23:45 23:14 Admitted to Med/surg room 431, ag7 ag7
[2022-02-08] MEDS ORDERED: KCL 20 MEQ/100 mL IVPB 100 ML IV ONE (18:28)
[2022-02-08] MEDS ORDERED: POTASSIUM 25 MEQ EFFERV TAB ONE (18:28)
--- NOTE | 2022-02-08 19:15 | P.HP ---
Certification for Inpatient Patient admitted to: Observation With expected LOS: <2 Midnights Patient will require the following post-hospital care: None Practitioner: I am a practitioner with admitting privileges, knowledge of patient current condition, hospital course, and medical plan of care. Services: Services provided to patient in accordance with Admission requirements found in Title 42 Section 412.3 of the Code of Federal Regulations Patient History Date of Service: 02/08/22 Reason for admission: Hyponatremia, hypokalemia History of Present Illness: 56-year-old female history of hypertension, uveal melanoma presents the emergency department for abnormal labs, weakness. She reports that she was called by her primary care provider notified that she had low sodium and low potassium and to present to the emergency department for evaluation. Patient was recently taken off of her diuretic last week triamterene/hydrochlorothiazide, she is also a daily drinker approximately glasses of wine per day. She was evaluated in the emergency department her labs were significant for mild hyponatremia sodium 125 hypokalemia potassium 2.6 chloride low all is well at 80 she was given IV fluids, banana bag, IV potassium in the emergency department her mag and phosphorus were also checked which were within normal limits. ED provider wishes to admit to observation for hyponatremia, hypokalemia, weakness. Home Medications: Amlodipine [Norvasc] 10 mg PO DAILY 01/22/17 Dexlansoprazole [Dexilant] 30 mg PO DAILY 01/22/17 Lisinopril [Zestril] 10 mg PO DAILY 01/22/17 Ondansetron [Zofran] 4 mg PO Q6H PRN 01/22/17 - Past Medical/Surgical History -: Hypertension -: Uveal melanoma -: Partial hysterectomy -: C4-C6 fusion -: Right rotator cuff surgery Psychosocial/ Personal History: Patient lives at home - Family History Family History: Reviewed- Non-Contributory - Social History Smoking Status: Former smoker Counseled patient to stop smoking for: less than 10 minutes Alcohol use: Yes CD- Drugs: No Caffeine use: No Place of Residence: Home Review of Systems 10-point ROS is otherwise unremarkable General: Weakness Physical Examination - Physical Exam General: Alert, In no apparent distress, Oriented x3 HEENT: Atraumatic, PERRLA, Mucous membr. moist/pink, EOMI, Sclerae nonicteric Neck: Supple, 2+ carotid pulse no bruit, No LAD, Without JVD or thyroid abnormality Respiratory: Clear to auscultation bilaterally, Normal air movement Cardiovascular: Regular rate/rhythm, Normal S1 S2 Gastrointestinal: Normal bowel sounds, No tenderness Musculoskeletal: No tenderness Integumentary: No rashes Neurological: Normal gait, Normal speech, Normal strength at 5/5 x4 extr, Normal tone, Normal affect Lymphatics: No axilla or inguinal lymphadenopathy - Studies Laboratory Data (last 24 hrs) 02/08/22 18:37: Phosphorus 2.6 02/08/22 16:42: PT 12.5, INR 1.13 02/08/22 16:42: WBC 10.1, Hgb 16.7 H, Hct 48.3 H, Plt Count 135 L 02/08/22 16:42: Sodium 125 L, Potassium 2.6 L*, BUN 7, Creatinine 0.82, Glucose 96, Magnesium 2.5 H, Total Bilirubin 1.6 H, AST 39 H, ALT 24, Alkaline Phosphatase 106, Lipase 231 Assessment and Plan - Plan Assessment: Hyponatremia Hypokalemia Chronic alcohol abuse Uveal melanoma Hypertension Plan: Hyponatremia: Given IV fluids/bolus/banana bag in ER we will recheck sodium this evening. Hypokalemia: Replaced in ER, Protocol in place Chronic alcohol abuse: We will provide with thiamine/folic acid monitor for signs of alcohol withdrawal alcohol level currently elevated reports he drinks about 2 glasses of wine per day doubt she will have alcohol withdrawal. Uveal melanoma: Patient follows up outpatient Hypertension: Avoid diuretics, monitor blood pressure and give medication as needed. DVT PPX: Lovenox Code status: Full Discharge Plan: Home Plan to discharge in: 24 Hours - Advance Directives Does patient have a Living Will: No Does patient have a Durable POA for Healthcare: No - Code Status/Comfort Care Code Status Assessed: Yes (Full code) Critical Care: No Time Spent Managing Pts Care (In Minutes): 70
[2022-02-09] MEDS ORDERED: ONDANSETRON 4 MG/2 ML VIAL IV PRN (00:19)
[2022-02-09 01:12] VITALS: BMI 23.8
[2022-02-09] MEDS: TRAZODONE 50 MG TABLET PO PRN ×2 (01:39→21:02)
[2022-02-09 03:46] LABS: Urine Appearance Clear (Clear); Urine Bilirubin Negative (Negative); Urine Blood Negative (Negative); Urine Color Yellow (Yellow); Urine Glucose Negative (Negative); Urine Protein Negative (Negative); Urine pH 7.5 (5.0-7.0)
[2022-02-09 03:47] LABS: Urine Microscopic Reflex NO UMIC
[2022-02-09 04:39] LABS: Absolute Lymphocytes (CBC) 1.9 K/uL (0.7-4.9); Hematocrit 40.5 % (36.0-45.0); Lymphocytes % 21.9 % (15.3-44.8); RBC Red Blood Cell Count 4.02 M/uL (3.86-4.86)
[2022-02-09 05:00] LABS: Albumin 2.8 g/dL (3.4-5.0); Magnesium 2.3 mg/dL (1.8-2.4); Protein, Total 6.2 g/dL (6.4-8.2)
[2022-02-09 05:17] LABS: Phosphorus 1.8 mg/dL (2.5-4.9); Thyroid Stimulating Hormone 1.24 uIU/mL (0.360-3.740)
[2022-02-09] MEDS: NA CHLORIDE 0.9% 1,000 ML IV SCH ×2 (06:20→19:24)
[2022-02-09] MEDS: THIAMINE HCL 100 MG TABLET PO SCH (08:24)
[2022-02-09] MEDS: FOLIC ACID 1 MG TABLET PO SCH (08:25)
[2022-02-09] MEDS: ENOXAPARIN 40 MG/0.4 ML SQ SCH (08:25)
[2022-02-09] MEDS ORDERED: POTASSIUM CL SA 10 MEQ TAB PO ONE ×2 (09:00→16:00)
[2022-02-09] MEDS ORDERED: POTASSIUM PHOS IN 0.9 % NACL 15 MMOL/250 ML BAG IV ONE (09:00)
[2022-02-09] MEDS ORDERED: POTASS/SODIUM PHOSPHATE 1 PKT POWD.PACK PO ONE ×3 (09:00→11:00)
--- NOTE | 2022-02-09 15:07 | P.PN ---
Subjective Date of Service: 02/09/22 Chief Complaint: Hyponatremia, hypokalemia Subjective: No new changes, Improving Physical Examination - Vital Signs Temperature: 97.8 F Blood Pressure: 100/70 Pulse: 83 Respirations: 16 Pulse Ox (%): 98 - Physical Exam General: Alert, Oriented x3 HEENT: Atraumatic, Normocephalic Neck: Supple Respiratory: Normal air movement Cardiovascular: Regular rate/rhythm, Normal S1 S2 Gastrointestinal: Soft and benign Musculoskeletal: No swelling Neurological: Normal speech, Normal strength at 5/5 x4 extr - Studies Laboratory Data (last 24 hrs) 02/08/22 18:37: Phosphorus 2.6 02/08/22 16:42: PT 12.5, INR 1.13 02/08/22 16:42: WBC 10.1, Hgb 16.7 H, Hct 48.3 H, Plt Count 135 L 02/08/22 16:42: Sodium 125 L, Potassium 2.6 L*, BUN 7, Creatinine 0.82, Glucose 96, Magnesium 2.5 H, Total Bilirubin 1.6 H, AST 39 H, ALT 24, Alkaline Phosphatase 106, Lipase 231 Assessment And Plan - Plan Pulmonary treatment Hypokalemia Alcohol abuse History of hypertension Hypophosphatemia Plan: Sodium is better at 131. We will continue insulin infusion for repletion. Potassium is better at 3.3. We will replete and monitor. Phosphorus is low at 1.8. We will replete and monitor. Will monitor electrolyte profile closely Will continue to monitor vital signs per unit protocol.
[2022-02-09] MEDS ORDERED: BISACODYL E.C. 5 MG TAB PO ONE (20:21)
[2022-02-10 08:03] LABS: Potassium 3.6 mmol/L (3.5-5.1)
[2022-02-10] MEDS: ENOXAPARIN 40 MG/0.4 ML SQ SCH (08:03)
[2022-02-10] MEDS: THIAMINE HCL 100 MG TABLET PO SCH (08:04)
[2022-02-10] MEDS: NA CHLORIDE 0.9% 1,000 ML IV SCH (08:04)
[2022-02-10] MEDS: FOLIC ACID 1 MG TABLET PO SCH (08:04)
[2022-02-10] MEDS ORDERED: POTASSIUM CL SA 10 MEQ TAB PO ONE (08:08)
[2022-02-10 09:35] VITALS: O2SAT 95
[2022-02-10 09:52] VITALS: BP 107/67; TEMP 98.2
--- NOTE | 2022-02-10 10:35 | P.DS ---
Admission Date: 02/09/22 Discharge Date: 02/10/22 Disposition: ROUTINE DISCHARGE Discharge Condition: GOOD Reason for Admission: Hyponatremia, hypokalemia Brief History of Present Illness: 56-year-old female history of hypertension, uveal melanoma presents the emergency department for abnormal labs, weakness. She reports that she was called by her primary care provider notified that she had low sodium and low potassium and to present to the emergency department for evaluation. Patient was recently taken off of her diuretic last week triamterene/hydrochlorothiazide, she is also a daily drinker approximately glasses of wine per day. She was evaluated in the emergency department her labs were significant for mild hyponatremia sodium 125 hypokalemia potassium 2.6 chloride low all is well at 80 she was given IV fluids, banana bag, IV potassium in the emergency department her mag and phosphorus were also checked which were within normal limits. ED provider wishes to admit to observation for hyponatremia, hypokalemia, weakness. Hospital Course: Was admitted for inpatient care and started on aggressive hydration for hyponatremia and had potassium repleted. She was also discovered to have elec trolyte abnormality of hypophosphatemia. She had responded well to therapy with improvement in sodium level to 135 on day of discharge and also repletion of potassium. She is deemed stable today to discharge home to continue with oral thiamine and multivitamin tablet for alcohol related issue. She will follow-up with her primary care doctor within a week of hospital discharge for posthospital discharge care evaluation. Vital Signs/Physical Exam: Temp Pulse Resp BP Pulse Ox 98.2 F 75 18 107/67 95 02/10/22 08:00 02/10/22 08:00 02/10/22 08:00 02/10/22 08:00 02/10/22 08:00 General: Alert, Oriented x3 HEENT: Atraumatic, Normocephalic Neck: Supple Respiratory: Normal air movement Cardiovascular: Regular rate/rhythm, Normal S1 S2 Gastrointestinal: Soft and benign Musculoskeletal: No contractures Neurological: Normal speech Laboratory Data at Discharge: WBC 8.6 K/uL (4.3-10.9) D 02/09/22 03:42 Hgb 14.2 g/dL (12.0-15.0) D 02/09/22 03:42 Hct 40.5 % (36.0-45.0) D 02/09/22 03:42 Plt Count 112 K/uL (152-406) L 02/09/22 03:42 PT 12.5 SECONDS (9.5-12.5) 02/08/22 16:42 INR 1.13 02/08/22 16:42 Sodium 135 mmol/L (136-145) L 02/10/22 07:37 Potassium 3.6 mmol/L (3.5-5.1) 02/10/22 07:37 BUN 4 mg/dL (7-18) L 02/10/22 07:37 Creatinine 0.61 mg/dL (0.55-1.3) 02/10/22 07:37 Glucose 97 mg/dL (74-106) 02/10/22 07:37 Phosphorus 1.8 mg/dL (2.5-4.9) L 02/09/22 03:42 Magnesium Cancelled 02/09/22 06:19 Total Bilirubin 1.0 mg/dL (0.2-1.0) 02/09/22 03:42 AST 22 U/L (15-37) 02/09/22 03:42 ALT 17 U/L (12-78) 02/09/22 03:42 Alkaline Phosphatase 86 U/L (45-117) 02/09/22 03:42 Lipase 231 U/L (73-393) 02/08/22 16:42 Home Medications: Amlodipine [Norvasc*] 10 mg PO DAILY 02/09/22 Trazodone [Desyrel*] 100 mg PO BEDTIME PRN PRN 02/09/22 Multivit with Iron,Minerals [Multivitamins with Iron] 1 each PO DAILY 30 Days #30 tab.chew 02/10/22 Thiamine HCl [Vitamin B-1*] 200 mg PO DAILY 30 Days #30 tablet 02/10/22 New Medications: Multivit with Iron,Minerals [Multivitamins with Iron] 1 each PO DAILY 30 Days #30 tab.chew Thiamine HCl [Vitamin B-1*] 200 mg PO DAILY 30 Days #30 tablet Diet: Regular Activity: Ad elif Followup: Karissa Curiel MD [Primary Care Provider] -
--- NOTE | 2022-02-11 13:39 | EKG ---
Test Date: 2022-02-08 Test Time: 16:56:02 Dependency Program Director: SHELIA MEASUREMENT RESULTS: Intervals: Rate: 87 [place]: 166 QRSD: 102 QT: 436 QTc: 524 [place]: P: 44 [place]: 166 QRS: 34 T: 56 INTERPRETIVE STATEMENTS: Normal sinus rhythm Nonspecific ST abnormality Prolonged QT Abnormal ECG Compared to ECG 03/20/2017 14:15:21 ST (T wave) deviation now present Prolonged QT interval now present Electronically Signed On 02-11-22 13:37:01 CDT by Franki Miller
== END 2022-02-10 11:00 | disposition home or self-care (01) | DRG 641 ==
LOC: ER 15:16 → ERHOLD 18:58 → 4TH 23:45 → OBSVTOIN 02-09 15:18
PROVIDERS: ADMIT Internal Medicine Nephrology; ATTEND Internal Medicine Nephrology
DX: E87.1 Hypo-osmolality and hyponatremia (principal); E87.6 Hypokalemia; R53.1 Weakness; E83.39 Other disorders of phosphorus metabolism; F10.10 Alcohol abuse, uncomplicated; I10 Essential (primary) hypertension; Z87.891 Personal history of nicotine dependence; C69.40 Malignant neoplasm of unspecified ciliary body; Z20.822 Contact with and (suspected) exposure to COVID-19
CPT/HCPCS: 36415; 70450; 71045; 72125; 80048; 80053; 80076; 80320; 81003; 83690; 83735; 83880; 83930; 83935; 84100; 84132; 84300; 84439; 84443; 84484; 85025; 85610; 93005; 96365; 96366; 96367; 96375; 99285; G0378; J1650; J3411; J3480; J7030; U0003

== ENCOUNTER 2024-09-11 09:43 | Emergency (ER) | payer OTHER ==
[2024-09-11] MEDS ORDERED: KETOROLAC 30 MG/ML INJ ONE (10:54)
--- NOTE | 2024-09-11 11:49 | ER ---
Nurse's Notes [facility] Name: Dyana Lockwood Age: 59 yrs Sex: Female : 1965 Arrival Date: 09/11/2024 Time: 09:43 Bed 14 Private MD: MORENITA MEJIAS Diagnosis: Other specified sprain of left wrist Presentation: 09/11 10:12 Chief complaint: Patient states: L wrist obvious deformity. Fell down steps at 4 AM iw today. Coronavirus screen: Client denies travel out of the [place] in the last 14 days. At this time, the client does not indicate any symptoms associated with coronavirus-19. Ebola Screen: Patient denies travel to an Ebola-affected area in the 21 days before illness onset. Initial Sepsis Screen: Does the patient meet any 2 criteria? No. Patient's initial sepsis screen is negative. Does the patient have a suspected source of infection? No. Patient's initial sepsis screen is negative. Risk Assessment: Do you want to hurt yourself or someone else? Patient reports no desire to harm self or others. Onset of symptoms was September 11, 2024. 10:12 Method Of Arrival: Ambulatory iw 10:12 Acuity: KELBY 3 iw Triage Assessment: 10:11 General: Appears in no apparent distress. uncomfortable, Behavior is calm, cooperative. rs5 Historical: - Allergies: 10:12 Bees; iw - PMHx: 10:12 Hypertensive disorder; partial hysterectomy; iw - Immunization history:: Adult Immunizations. - Infectious Disease History:: Denies. - Social history:: Smoking status: Reported history of juuling and/or vaping. Screenin:12 [facility] ED Fall Risk Assessment (Adult) History of falling in the last 3 months, rs5 including since admission Yes- single mechanical fall (1 pt) Confusion or Disorientation No (0 pts) Intoxicated or Sedated No (0 pts) Impaired Gait No (0 pts) Mobility Assist Device Used No (0 pt) Altered Elimination No (0 pt) Score/Fall Risk Level 0 - 2 = Low Risk Oriented to surroundings, Maintained a safe environment. 10:12 Abuse screen: Denies threats or abuse. Nutritional screening: No deficits noted. rs5 Tuberculosis screening: No symptoms or risk factors identified. Assessment: 10:10 General: Appears in no apparent distress. uncomfortable, Behavior is calm, cooperative. rs5 Pain: Complains of pain in left wrist Pain currently is 7 out of 10 on a pain scale. Quality of pain is described as aching, Is continuous. Neuro: Level of Consciousness is awake, alert, obeys commands, Oriented to person, place, time, situation. Cardiovascular: Patient's skin is warm and dry. Respiratory: Airway is patent Respiratory effort is even, unlabored, Respiratory pattern is regular, symmetrical. GI: Abdomen is round non-distended, Abd is soft and non tender X 4 quads. : No signs and/or symptoms were reported regarding the genitourinary system. EENT: No signs and/or symptoms were reported regarding the EENT system. Derm: Skin is intact, Skin is pink, warm \T\ dry. Musculoskeletal: Range of motion: limited in left wrist Swelling present in left wrist. 11:18 Reassessment: Patient and/or family updated on plan of care and expected duration. Pain rs5 level reassessed. Patient is alert, oriented x 3, equal unlabored respirations, skin warm/dry/pink. 12:07 Reassessment: Patient and/or family updated on plan of care and expected duration. Pain rs5 level reassessed. Patient is alert, oriented x 3, equal unlabored respirations, skin warm/dry/pink. Vital Signs: 10:12 BP 144 / 101; Pulse 83; Resp 16; Temp 97; Pulse Ox 100% ; Weight 86.18 kg; Height 6 ft. iw 1 in. ; Pain 8/10; 12:01 BP 137 / 89; Pulse 74; Resp 17; Pulse Ox 99% on R/A; rs5 10:12 Body Mass Index 25.07 (86.18 kg, 185.42 cm) iw 10:12 Pain Scale: Adult iw ED Course: 09:45 Patient arrived in ED. am2 09:46 MORENITA MEJIAS is Private Physician. am2 09:46 Dora Carrillo MD is Attending Physician. sp3 10:12 Patient has correct armband on for positive identification. Bed in low position. Call rs5 light in reach. Side rails up X2. 10:12 No provider procedures requiring assistance completed. rs5 10:13 Triage completed. iw 10:13 Arm band placed on Patient placed in an exam room, on a stretcher. iw 10:21 Tanmay Bustos, RN is Primary Nurse. rs5 10:46 Wrist Left (3 View) XRAY In Process Unspecified. EDMS 11:47 Willi Jones MD is Referral Physician. sp3 11:58 Orthoglass splint: Volar splint applied on left arm Sling applied to left arm. ty 12:05 Provided Education on: discharge instructions . rs5 12:10 Patient did not have IV access during this emergency room visit. rs5 Administered Medications: 10:58 Drug: Ketorolac IM 30 mg IM once Route: IM; Site: left deltoid; rs5 11:30 Follow up: Response: No adverse reaction; Pain is decreased rs5 Medication: 10:15 VIS not applicable for this client. rs5 Outcome: 11:49 Discharge ordered by . sp3 12:10 Discharged to home ambulatory, rs5 12:10 Condition: stable rs5 12:10 Discharge instructions given to patient, family, Instructed on discharge instructions, follow up and referral plans. medication usage, Demonstrated understanding of instructions, follow-up care, medications, Prescriptions given X 1, 12:14 Patient left the ED. rs5 Signatures: Dispatcher [employer] EDMS Cuca Vega RN RN iw Senia Mcgill am2 Dora Carrillo MD MD sp3 Tanmay Bustos, ANA RN rs5 Jarod Colby ty Corrections: (The following items were deleted from the chart) 12:44 12:43 BP 137 / 89; Pulse 74bpm; Resp 17bpm; Pulse Ox 99% RA; rs5 rs5
--- NOTE | 2024-09-11 11:49 | EDPHYS ---
Physician Documentation [facility] Name: Dyana Lockwood Age: 59 yrs Sex: Female : 1965 Arrival Date: 09/11/2024 Time: 09:43 Bed 14 Private MD: MORENITA MEJIAS ED Physician Dora Carrillo HPI: 09/11 11:44 This 59 yrs old Female presents to ER via Ambulatory with complaints of Wrist Injury. sp3 11:45 59-year-old female with history of hypertension presents with left wrist injury from a sp3 ground-level fall at 4 AM while walking the dogs. Patient had a FOOSH injury. She denies any other injury including head, neck, chest, other extremity. No loss of consciousness or medical prodrome prior to the event.. Historical: - Allergies: 10:12 Bees; iw - PMHx: 10:12 Hypertensive disorder; partial hysterectomy; iw - Immunization history:: Adult Immunizations. - Infectious Disease History:: Denies. - Social history:: Smoking status: Reported history of juuling and/or vaping. ROS: 11:45 Constitutional: Negative for fever, chills, and weight loss, Eyes: Negative for injury, sp3 pain, redness, and discharge, ENT: Negative for injury, pain, and discharge, Neck: Negative for injury, pain, and swelling, Cardiovascular: Negative for chest pain, palpitations, and edema, Respiratory: Negative for shortness of breath, cough, wheezing, and pleuritic chest pain, Back: Negative for injury and pain, MS/Extremity: Negative for injury and deformity, Neuro: Negative for headache, weakness, numbness, tingling, and seizure, Psych: Negative for depression, anxiety, suicide ideation, homicidal ideation, and hallucinations, Allergy/Immunology: Negative for hives, rash, and allergies, Endocrine: Negative for neck swelling, polydipsia, polyuria, polyphagia, and marked weight changes, 11:45 All other systems are negative, Exam: 11:46 Constitutional: This is a well developed, well nourished patient who is awake, alert, sp3 and in no acute distress. Head/Face: Normocephalic, atraumatic. Neck: Trachea midline, no thyromegaly or masses palpated, and no cervical lymphadenopathy. Supple, full range of motion without nuchal rigidity, or vertebral point tenderness. No Meningismus. Chest/axilla: Normal chest wall appearance and motion. Nontender with no deformity. No lesions are appreciated. Cardiovascular: Regular rate and rhythm with a normal S1 and S2. No gallops, murmurs, or rubs. Normal PMI, no JVD. No pulse deficits. Respiratory: Lungs have equal breath sounds bilaterally, clear to auscultation and percussion. No rales, rhonchi or wheezes noted. No increased work of breathing, no retractions or nasal flaring. Abdomen/GI: Soft, non-tender, with normal bowel sounds. No distension or tympany. No guarding or rebound. No evidence of tenderness throughout. Back: No spinal tenderness. No costovertebral tenderness. Full range of motion. Skin: Warm, dry with normal turgor. Normal color with no rashes, no lesions, and no evidence of cellulitis. Neuro: Awake and alert, GCS 15, oriented to person, place, time, and situation. Cranial nerves II-XII grossly intact. Motor strength 5/5 in all extremities. Sensory grossly intact. Cerebellar exam normal. Normal gait. Psych: Awake, alert, with orientation to person, place and time. Behavior, mood, and affect are within normal limits. 11:46 Musculoskeletal/extremity: Left wrist swelling however no obvious bony deformity. Distal neurovascular exam is normal. No break to the skin.. Vital Signs: 10:12 BP 144 / 101; Pulse 83; Resp 16; Temp 97; Pulse Ox 100% ; Weight 86.18 kg; Height 6 ft. iw 1 in. ; Pain 8/10; 12:01 BP 137 / 89; Pulse 74; Resp 17; Pulse Ox 99% on R/A; rs5 10:12 Body Mass Index 25.07 (86.18 kg, 185.42 cm) iw 10:12 Pain Scale: Adult iw MDM: 10:09 Medical Screening Exam initiated sp3 11:46 Data reviewed: vital signs, nurses notes, radiologic studies. ED course: 59-year-old sp3 female with left wrist injury. X-ray demonstrates no obvious fracture on my read. Will go ahead and splint as if hairline occult fracture may be hidden. Follow-up with orthopedics. Ortho-Glass and sling applied.. 09/11 10:17 Order name: Wrist Left (3 View) XRAY sp3 09/11 10:17 Order name: NPO; Complete Time: 10:21 sp3 09/11 11:47 Order name: Volar Wrist Splint; Complete Time: 12:13 sp3 09/11 11:47 Order name: Sling; Complete Time: 12:13 sp3 Administered Medications: 10:58 Drug: Ketorolac IM 30 mg IM once Route: IM; Site: left deltoid; rs5 11:30 Follow up: Response: No adverse reaction; Pain is decreased rs5 Disposition Summary: 09/11/24 11:49 Discharge Ordered Notes: Location: Home sp3 Condition: Stable sp3 Diagnosis - Other specified sprain of left wrist sp3 Followup: sp3 - With: Willi Jones MD - When: Upon discharge from the Emergency Department - Reason: Continuance of care Discharge Instructions: - Discharge Summary Sheet sp3 - Wrist Splint or Brace, Adult sp3 - Wrist Sprain, Adult sp3 Forms: - Medication Reconciliation Form sp3 - Antibiotic Education sp3 - Prescription Opioid Use sp3 - Patient Portal Instructions sp3 - Leadership Thank You Letter sp3 Prescriptions: - Tramadol 50 mg Oral Tablet - take 1 tablet ORAL route every 8 hours as needed; 12 tablet; Refills: 0, sp3 Product Selection Permitted Signatures: Dispatcher [employer] Cuca Padilla, RN RN iw Dora Carrillo MD MD sp3 Tanmay Bustos RN RN rs5
--- NOTE | 2024-09-11 12:36 | RAD REPORT ---
EXAM: XR Wrist Left 3 View HISTORY: [facility] MAIN trauma Bed Name: IW1 COMPARISON: None TECHNIQUE: 3 views of the left wrist. FINDINGS: No evidence of acute fracture or dislocation. Joint alignment is maintained. Soft tissue sw elling about the wrist. Mild degenerative changes predominantly along the radiocarpal line. IMPRESSION: No evidence of acute osseous abnormality. Soft tissue swelling about the wrist
[2024-09-14 15:17] VITALS: BP 144/101; TEMP 97; O2SAT 100
== END 2024-09-11 12:14 | disposition home or self-care (01) ==
LOC: ER 09:43
DX: S63.502A Unspecified sprain of left wrist, initial encounter (principal); I10 Essential (primary) hypertension; W10.9XXA Fall (on) (from) unspecified stairs and steps, initial encounter; Y93.K1 Activity, walking an animal
CPT/HCPCS: 96372; 99284

== ENCOUNTER 2024-09-13 10:51 | Emergency (ER) | payer OTHER ==
[2024-09-13] MEDS ORDERED: GABAPENTIN 300 MG CAP ONE (11:35)
--- NOTE | 2024-09-13 12:20 | RAD REPORT ---
Exam:Wrist Left 3 View HISTORY: Left wrist pain FINDINGS: Cortical irregularity involves the dorsal aspect of the distal wrist seen on the lateral view. This i s equivocal for a fracture. CT scan could be obtained for further evaluation if clinically indicated No dislocation
--- NOTE | 2024-09-13 12:58 | ER ---
Nurse's Notes [facility] Name: Dyana Lockwood Age: 59 yrs Sex: Female : 1965 Arrival Date: 09/13/2024 Time: 10:51 Bed 13 Private MD: Diagnosis: Distal radius fracture, left Presentation: 09/13 11:07 Chief complaint: Patient states: was seen here Friday and they said her left wrist iw wasn't broken but she will need an MRI, she cannot get into ortho because he is out of town, pain is worse, was prescribed tramadol but it's not helping. Coronavirus screen: At this time, the client does not indicate any symptoms associated with coronavirus-19. Ebola Screen: No symptoms or risks identified at this time. Initial Sepsis Screen: Does the patient meet any 2 criteria? No. Patient's initial sepsis screen is negative. Does the patient have a suspected source of infection?. Risk Assessment: Do you want to hurt yourself or someone else? Patient reports no desire to harm self or others. Onset of symptoms. 11:07 Method Of Arrival: Ambulatory iw 11:07 Acuity: KELBY 4 iw Historical: - Allergies: 11:09 Bees; iw 11:09 Tylenol-Codeine #3; itching; iw - PMHx: 11:09 Hypertensive disorder; partial hysterectomy; iw - Immunization history:: Adult Immunizations unknown. - Infectious Disease History:: Denies. - Social history:: Smoking status: Patient denies any tobacco usage or history of. Screenin:00 [facility] ED Fall Risk Assessment (Adult) History of falling in the last 3 months, iw including since admission No falls in past 3 months (0 pts) Confusion or Disorientation No (0 pts) Intoxicated or Sedated No (0 pts) Impaired Gait No (0 pts) Mobility Assist Device Used No (0 pt) Altered Elimination No (0 pt) Score/Fall Risk Level 0 - 2 = Low Risk Oriented to surroundings, Maintained a safe environment. Abuse screen: Denies threats or abuse. Denies injuries from another. Nutritional screening: No deficits noted. Tuberculosis screening: No symptoms or risk factors identified. Assessment: 12:00 Reassessment: Patient appears in no apparent distress at this time. Patient and/or iw family updated on plan of care and expected duration. Pain level reassessed. Patient is alert, oriented x 3, equal unlabored respirations, skin warm/dry/pink. General: Appears in no apparent distress. comfortable, Behavior is calm, cooperative. Pain: Complains of pain in left wrist. Neuro: Level of Consciousness is awake, alert, obeys commands, Oriented to person, place, time, situation. Respiratory: Airway is patent Respiratory effort is even, unlabored, Respiratory pattern is regular, symmetrical. Musculoskeletal: Reports pain in left wrist. 12:45 Reassessment: Patient appears in no apparent distress at this time. Patient and/or iw family updated on plan of care and expected duration. Pain level reassessed. Patient is alert, oriented x 3, equal unlabored respirations, skin warm/dry/pink. PATIENT AMBULATORY TO RESTROOM. 13:35 Reassessment: Patient appears in no apparent distress at this time. Patient and/or iw family updated on plan of care and expected duration. Pain level reassessed. Patient is alert, oriented x 3, equal unlabored respirations, skin warm/dry/pink. Vital Signs: 11:07 BP 132 / 100; Pulse 84; Resp 16; Temp 98.1; Pulse Ox 100% on R/A; Weight 85.73 kg; iw Height 6 ft. 1 in. ; Pain 8/10; 13:28 BP 138 / 107; Pulse 98; Resp 16; Pulse Ox 97% on R/A; iw 11:07 Body Mass Index 24.94 (85.73 kg, 185.42 cm) iw 11:07 Pain Scale: Adult iw ED Course: 10:55 Patient arrived in ED. sj2 10:56 Alida Oakley PA-C is PHCP. sb4 10:56 Angus Joseph MD is Attending Physician. sb4 11:09 Triage completed. iw 11:09 Arm band placed on. iw 11:36 Wrist Left (3 View) XRAY In Process Unspecified. EDMS 11:37 Cuca Vega, RN is Primary Nurse. iw 12:00 Patient has correct armband on for positive identification. Call light in reach. Side iw rails up X 1. 13:28 Orthoglass splint: Thumb spica splint applied on left forearm. iw 13:47 Lexy Story, RN is Primary Nurse. iw 14:01 Provided Education on: DISCHARGE. iw 14:01 No provider procedures requiring assistance completed. Patient did not have IV access iw during this emergency room visit. Administered Medications: 11:37 Drug: Gabapentin PO 300 mg PO once Route: PO; iw 13:29 Follow up: Response: No adverse reaction iw Medication: 14:01 VIS not applicable for this client. iw Outcome: 12:57 Discharge ordered by MD. wilson 13:47 Patient left the ED. iw 14:01 Discharged to home ambulatory, iw 14:01 Condition: stable 14:01 Discharge instructions given to patient, Instructed on discharge instructions, follow up and referral plans. Signatures: Dispatcher [employer] Cuca Padilla RN RN Alida Benz, PA-C PA-C sb4 Hung Bernal2
--- NOTE | 2024-09-13 12:58 | EDPHYS ---
Physician Documentation [facility] Name: Dyana Lockwood Age: 59 yrs Sex: Female : 1965 Arrival Date: 09/13/2024 Time: 10:51 Bed 13 Private MD: ED Physician Angus Joseph HPI: 09/13 11:19 This 59 yrs old Female presents to ER via Ambulatory with complaints of Wrist Pain, sb4 Hand Swelling. 11:19 fell 2 days ago, hurt left wrist, was seen here and had negative xrays. was placed in sb4 volar splint, prescribed tramadol, and told to follow up with ortho. has appointment with ortho in 3 days but states is still having pain. wants an MRI. Historical: - Allergies: 11:09 Bees; iw 11:09 Tylenol-Codeine #3; itching; iw - PMHx: 11:09 Hypertensive disorder; partial hysterectomy; iw - Immunization history:: Adult Immunizations unknown. - Infectious Disease History:: Denies. - Social history:: Smoking status: Patient denies any tobacco usage or history of. ROS: 11:19 Constitutional: Negative for fever, chills, and weight loss, sb4 11:19 MS/extremity: Positive for injury or acute deformity, pain, swelling, of the left wrist, 11:19 All other systems are negative, Exam: 11:22 Hand exam: ROM: limited active range of motion due to pain, limited passive range of sb4 motion due to pain, in the left wrist, Circulation is intact in all extremities. Pulses: are normal with no appreciated deficits, sensation intact. 11:22 Skin: mild bruising palmar aspect of left wrist. 11:22 Constitutional: This is a well developed, well nourished patient who is awake, alert, and in no acute distress. Head/Face: Normocephalic, atraumatic. Eyes: Extra-ocular motions intact. Periorbital areas with no swelling, redness, or edema. ENT: Mucous membranes moist. Vital Signs: 11:07 BP 132 / 100; Pulse 84; Resp 16; Temp 98.1; Pulse Ox 100% on R/A; Weight 85.73 kg; iw Height 6 ft. 1 in. ; Pain 8/10; 13:28 BP 138 / 107; Pulse 98; Resp 16; Pulse Ox 97% on R/A; iw 11:07 Body Mass Index 24.94 (85.73 kg, 185.42 cm) iw 11:07 Pain Scale: Adult iw MDM: 11:09 Medical Screening Exam initiated sb4 12:56 Data reviewed: vital signs, nurses notes, radiologic studies, and as a result, I will sb4 discharge patient. Counseling: I had a detailed discussion with the patient and/or guardian regarding the historical points, exam findings, and any diagnostic results supporting the discharge/admit diagnosis, radiology results, the need for outpatient follow up, a orthopedic surgeon, to return to the emergency department if symptoms worsen or persist or if there are any questions or concerns that arise at home. 09/13 11:17 Order name: Wrist Left (3 View) XRAY; Complete Time: 12:21 sb4 09/13 12:57 Order name: Thumb Spica Splint; Complete Time: 13:29 sb4 Administered Medications: 11:37 Drug: Gabapentin PO 300 mg PO once Route: PO; iw 13:29 Follow up: Response: No adverse reaction iw Disposition: 13:56 Co-signature as Attending Physician, Angus Joseph MD I reviewed the patient's care rn provided by the Advanced Practice Provider and agree with the diagnosis and treatment plan. Disposition Summary: 09/13/24 12:57 Discharge Ordered Notes: Location: Home sb4 Problem: an ongoing problem sb4 Symptoms: have improved sb4 Condition: Stable sb4 Diagnosis - Distal radius fracture, left sb4 Followup: sb4 - With: Private Physician - When: As needed - Reason: Recheck today's complaints, Re-evaluation by your physician Discharge Instructions: - Discharge Summary Sheet sb4 - Wrist Fracture Treated With Immobilization sb4 Forms: - Patient Portal Instructions sb4 - Leadership Thank You Letter sb4 Signatures: Dispatcher [employer] Cuca Padilla RN RN iw Nieto, Roman, MD MD rn Brown, Sophia, PA-C PA-C sb4
[2024-09-14 16:50] VITALS: BP 138/107; TEMP 98.1; O2SAT 97
== END 2024-09-13 13:47 | disposition home or self-care (01) ==
LOC: ER 10:51
DX: S52.502A Unspecified fracture of the lower end of left radius, initial encounter for closed fracture (principal)
CPT/HCPCS: 99283